=== PATIENT | female | born 1965 | race Caucasian/White ===

== ENCOUNTER 2022-03-07 09:44 | Day surgery (SDC) | payer OTHER ==
[~2022-03-07 09:44] MED LIST: Lactated Ringers 1,000 ML IV SCH; Lidocaine 1%/Sod Bicarbonate in NS 8.4% 1 ML Syringe IDERM PRN; Sodium Chloride 0.9% 10 ML Syringe FLUSH PRN; Sodium Chloride 0.9% 10 ML Syringe FLUSH SCH
[2022-03-07] MEDS ORDERED: Lidocaine 1% with EPINEPHrine 1:100,000 10 ML MDV ONE (11:07)
[2022-03-07] MEDS ORDERED: Bupivacaine 0.5% 30 ML SDV ONE (11:08)
[2022-03-07] MEDS ORDERED: Succinylcholine 200 MG/10 ML MDV ONE (12:54)
[2022-03-07] MEDS ORDERED: Propofol 200 MG/20 ML SDV ONE (12:57)
[2022-03-07] MEDS ORDERED: Midazolam 1 MG/ML 2 ML SDV ONE (12:58)
[2022-03-07] MEDS ORDERED: fentaNYL 100 MCG/2 ML SDV ONE (12:58)
[2022-03-07] MEDS ORDERED: Lidocaine 1% 6 ML ONE (12:59)
[2022-03-07] MEDS ORDERED: Lactated Ringers 1,000 ML ONE (13:29)
[2022-03-07] MEDS ORDERED: ceFAZolin 2 GM Vial ONE (13:33)
[2022-03-07] MEDS ORDERED: metroNIDAZOLE/Normal Saline 100 ML ONE (13:33)
[2022-03-07] MEDS ORDERED: Rocuronium 50 MG/5 ML Vial ONE (13:37)
[2022-03-07] MEDS ORDERED: Phenylephrine HCl In 0.9% NaCl 1 MG/10 ML Vial ONE (13:40)
[2022-03-07] MEDS ORDERED: Ondansetron 4 MG/2 ML SDV ONE (14:11)
[2022-03-07] MEDS ORDERED: Sugammadex Sodium 200 MG/2 ML VIAL ONE (14:13)
[2022-03-07] MEDS ORDERED: fentaNYL 100 MCG/2 ML SDV IVPUSH PRN (14:15)
[2022-03-07] MEDS ORDERED: HYDROmorphone 0.5 MG/0.5 ML Syringe IVPUSH PRN (14:15)
[2022-03-07] MEDS ORDERED: Prochlorperazine 10 MG/2 ML SDV IVPUSH SCH (16:29)
== END 2022-03-07 17:45 | disposition home or self-care (01) ==
LOC: JD.SDS 09:44
PROVIDERS: ATTEND Surgery
DX: D12.0 Benign neoplasm of cecum (principal); G47.33 Obstructive sleep apnea (adult) (pediatric); E16.2 Hypoglycemia, unspecified; K21.9 Gastro-esophageal reflux disease without esophagitis; E66.9 Obesity, unspecified; Z98.890 Other specified postprocedural states; Z90.49 Acquired absence of other specified parts of digestive tract; Z88.0 Allergy status to penicillin; Z88.5 Allergy status to narcotic agent; Z90.710 Acquired absence of both cervix and uterus; Z88.8 Allergy status to other drugs, medicaments and biological substances; Z87.891 Personal history of nicotine dependence
CPT/HCPCS: 44238; 93005; J0330; J0690; J0780; J2250; J2405; J2704; J3010; J3490; J7120; 00790